=== PATIENT | female | born 1965 | race Two or more races ===

== ENCOUNTER 2018-05-14 14:38 | Emergency (ER) | payer OTHER ==
[~2018-05-14] VITALS: Ht 157.5 cm; Wt 59.0 kg
[2018-05-14] MEDS ORDERED: IBUPROFEN 800 MG TAB PO ONE (15:45)
[2018-05-14 16:15] VITALS: BP 115/89
== END 2018-05-14 16:40 | disposition home or self-care (01) ==
LOC: ER 14:38
DX: S82.041A Displaced comminuted fracture of right patella, initial encounter for closed fracture (principal); X50.1XXA Overexertion from prolonged static or awkward postures, initial encounter; Y93.89 Activity, other specified; Y92.89 Other specified places as the place of occurrence of the external cause; Y99.8 Other external cause status
CPT/HCPCS: 73562